=== PATIENT | female | born 1940 | race Caucasian/White ===

== ENCOUNTER 2016-08-02 10:20 | Emergency (ER) | payer MEDICAID, MEDICARE ==
[~2016-08-02] VITALS: Ht 165.1 cm; Wt 79.4 kg
[~2016-08-02 10:20] MED LIST: ALBUTEROL SULF8.5 GM INH; AZITHROMYCIN250 MG PO; CYCLOBENZAPRINE10 MG ORAL; IBUPROFEN600 MG ORAL; NKM
[2016-08-02] MEDS ORDERED: Bacitracin Oint UD TOPIC ONE (10:45)
[2016-08-02] MEDS: Lidocaine 1% MPF 10mg/ml 5ml IM ONE ×2 (10:51→11:20)
[2016-08-02 10:55] VITALS: BP 139/67
--- NOTE | 2016-08-02 12:03 | Emergency Room Report ---
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 Bleeding controlled. Pain 2/10, sharp. No numbness. Tetanus < 10 years. No fevers, DM. 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 [employer] Last Menstrual Period: na Reviewed Nursing Documentation: PMH: Agreed, PSxH: Agreed Nursing Documentation-PMH Past Medical History: No Stated History Review of Systems All Other Systems: negative except mentioned in HPI Physical Exam Vital Signs Date Time Temp Pulse Resp B/P Pulse Ox O2 Delivery O2 Flow Rate FiO2 08/02/16 10:26 97.5 65 18 181/73 98 Room Air Sp02 EP Interpretation: reviewed, normal General Appearance: well appearing, no apparent distress Head: normocephalic, atraumatic Eyes: bilateral eye PERRL, bilateral eye normal inspection ENT: hearing grossly normal, normal voice, moist mucus membranes Neck: full range of motion, supple Respiratory: no respiratory distress, speaking full sentences Cardiovascular #2: 2+ dorsalis pedis (L) Musculoskeletal: digits/nails normal, gait/station normal, normal range of motion Neurologic: alert, motor strength/tone normal, sensory intact, normal gait Psychiatric: mood/affect normal Skin: laceration - L posterior calf = 2.5 cm Procedures Laceration/Wound Repair Laceration/Wound Repair : Consent: Verbal Wound Location: lower extremity Wound's Depth, Shape: superficial Wound Length (cm): 2 - 2.5 Wound Explored: clean Betadine Prep?: Yes Anesthesia: 1% Lidocaine Wound Debrided: none Wound Repaired With: sutures Suture Size/Type: 5:0 Layer Closure?: No Sterile Dressing Applied?: Yes Splint Applied?: No Patient Tolerated: Well Complications: None Medical Decision Making Diagnostic Impression: Primary Impression: Laceration of left leg Qualified Codes: S81.812A - Laceration without foreign body, left lower leg, initial encounter ER Course Patient with laceration. Needs repair. Tet UTD. Laceration repaired. Tolerated well. Patient stable for outpatient observation and treatment. Status: improved Disposition: HOME, SELF-CARE Condition: Improved Referrals: NOT CHOSEN [facility]/,REFERRING (PCP) Jakob Luo M.D. August 02, 2016 12:03
[2016-08-02 12:25] VITALS: BP 134/86
== END 2016-08-02 12:25 | disposition home or self-care (01) ==
LOC: EMR 10:43
DX: S81.812A Laceration without foreign body, left lower leg, initial encounter (principal); W25.XXXA Contact with sharp glass, initial encounter; Y92.000 Kitchen of unspecified non-institutional (private) residence as the place of occurrence of the external cause

== ENCOUNTER 2016-08-19 20:25 | Emergency (ER) | payer MEDICARE ==
[~2016-08-19] VITALS: Ht 167.6 cm; Wt 83.9 kg
[2016-08-19 20:40] VITALS: BP 146/78
[2016-08-19 20:50] VITALS: BP 146/78
--- NOTE | 2016-08-19 21:02 | Emergency Room Report ---
History of Present Illness General Chief Complaint: Wound Recheck/Suture Removal Source: Patient Present Illness [facility] The patient is a 76-year-old female presenting for suture removal. The patient had 4 sutures placed of the left lower leg 2 weeks prior. The patient states that she has been keeping the wound clean and dry. She has also been applying Neosporin. She denies any pain, bleeding, or discharge from the wound. She denies any other symptoms including nausea, vomiting, fever, chills, numbness or tingling Allergies: Coded Allergies: No Known Allergies (Verified Allergy, Unknown, 07/09/07) Patient History Past Medical History: see triage record Pertinent Family History: none Reviewed Nursing Documentation: PMH: Agreed, PSxH: Agreed Nursing Documentation-PMH Past Medical History: No Stated History Review of Systems All Other Systems: negative except mentioned in HPI Physical Exam Vital Signs Date Time Temp Pulse Resp B/P Pulse Ox O2 Delivery O2 Flow Rate FiO2 08/19/16 20:32 97.9 76 18 146/78 97 Room Air Sp02 EP Interpretation: reviewed, normal General Appearance: no apparent distress, alert, GCS 15, non-toxic Head: normocephalic, atraumatic Eyes: bilateral eye PERRL, bilateral eye normal inspection Musculoskeletal: back normal, normal range of motion, no calf tenderness Neurologic: alert, oriented x3, responsive, motor strength/tone normal, sensory intact, speech normal Psychiatric: judgement/insight normal, memory normal, mood/affect normal, no suicidal/homicidal ideation Skin: warm/dry, well hydrated, laceration - well healing. Well approximated Lymphatic: no adenopathy Medical Decision Making PA Attestation Dr. Horton is my supervising physician. Patient management was discussed with my supervising physician Diagnostic Impression: Primary Impression: Visit for wound check Additional Impression: Visit for suture removal ER Course The patient is a 76-year-old female presenting for suture removal. Differential diagnosis considered: Wound infection, nonhealing wound, cellulitis , abscess Physical exam: No apparent distress There 4 nylon sutures of the posterior left lower leg. Wound is well approximated. No bleeding. Nontender. Suture removal: 4 simple interrupted sutures were removed without complication. No bleeding or discharge. Wound is well approximated. No surrounding erythema. The patient will be discharged home and will continue to keep the wound clean and dry. ER precautions are given Last Vital Signs Date Time Temp Pulse Resp B/P Pulse Ox O2 Delivery O2 Flow Rate FiO2 08/19/16 20:50 97.9 18 146/78 97 Room Air 08/19/16 20:32 76 Status: improved Disposition: HOME, SELF-CARE Condition: Improved Patient Instructions: Wound Check, Suture Removal, Care After Additional Instructions: I discussed my findings with the patient. All questions and concerns have been answered. Treatment and medication compliance have been addressed. I advised the patient that they need to follow up with PMD in 3-5 days. Return to ED if symptoms worsen, new symptoms arise, or if needed for any reason. Patient verbalized understanding of discharge instructions. MOI SAINI August 19, 2016 21:02
== END 2016-08-19 20:50 | disposition home or self-care (01) ==
LOC: EMR 20:41
DX: Z48.02 Encounter for removal of sutures (principal)
CPT/HCPCS: 99281

== ENCOUNTER 2018-01-03 14:11 | Emergency (ER) | payer MEDICARE, OTHER ==
[~2018-01-03] VITALS: Ht 167.6 cm; Wt 86.2 kg
[2018-01-03 14:25] VITALS: BP 163/69
[2018-01-03 15:08] VITALS: BP 163/69
--- NOTE | 2018-01-03 15:08 | Emergency Room Report ---
History of Present Illness General Chief Complaint: Skin Rash/Abscess Source: Patient Present Illness HPI 77-year-old female presents to the emergency department complaining of itchy rash on the scalp times one week. Patient denies pain and states she is up-to- date with her vaccinations. Pt. denies fevers, chills or swollen tender lymph nodes. Denies lesions/rashes elsewhere on the body. Denies new medications or body washes or creams. Denies swelling of the lips, tongue , throat or airway. Denies wheezing, or shortness of breath. Denies recent travel, recent illness or ill contacts. denies blisters, oral lesions, or sloughing of the skin. Patient states that she has tried multiple home remedies such as essential oils without relief of her symptoms. Patient states that she is now began to have crusting over a large area. Allergies: Coded Allergies: No Known Allergies (Verified Allergy, Unknown, 07/09/07) Patient History Past Medical History: see triage record Past Surgical History: none Pertinent Family History: none Now: No Immunizations: UTD Reviewed Nursing Documentation: PMH: Agreed; PSxH: Agreed Nursing Documentation-PMH Past Medical History: No Stated History Review of Systems All Other Systems: negative except mentioned in HPI Physical Exam Vital Signs Date Time Temp Pulse Resp B/P (MAP) Pulse Ox O2 Delivery O2 Flow Rate FiO2 01/03/18 14:16 97.7 81 18 163/69 96 Room Air 97.7 Sp02 EP Interpretation: reviewed, normal General Appearance: no apparent distress, alert, GCS 15, non-toxic Head: normocephalic, atraumatic Eyes: bilateral eye normal inspection, bilateral eye PERRL ENT: hearing grossly normal, normal pharynx, normal voice Neck: full range of motion Respiratory: lungs clear, normal breath sounds, no wheezing, speaking full sentences Cardiovascular #1: regular rate, rhythm, no edema Musculoskeletal: back normal, gait/station normal, normal range of motion, non- tender Neurologic: alert, oriented x3, responsive, motor strength/tone normal, sensory intact, normal gait, speech normal, grossly normal Psychiatric: judgement/insight normal Skin: normal color, warm/dry, well hydrated, rash - large plaque with crusting noted and multiple dry lesions radiating outward and downward, no blisters or vessicles noted at this time. Medical Decision Making PA Attestation Dr. Eric is my supervising physician whom pt. management has been discussed with. Diagnostic Impression: Primary Impression: Rash and other nonspecific skin eruption ER Course 77-year-old female presents to the emergency department complaining of itchy rash on the scalp times one week. Patient denies pain and states she is up-to- date with her vaccinations. Pt. denies fevers, chills or swollen tender lymph nodes. Denies lesions/rashes elsewhere on the body. Denies new medications or body washes or creams. Denies swelling of the lips, tongue , throat or airway. Denies wheezing, or shortness of breath. Denies recent travel, recent illness or ill contacts. denies blisters, oral lesions, or sloughing of the skin. Patient states that she has tried multiple home remedies such as essential oils without relief of her symptoms. Patient states that she is now began to have crusting over a large area. Ddx considered but are not limited to lice, cellulitis, scabies, shingles, varicella, dermatitis, urticaria, eczema, tinea, viral exanthem, SJS Vital signs: are WNL, pt. is afebrile H&PE are most consistent with suspected infestation rash with secondary infection. ORDERS: none required at this time, the diagnosis is clinical ED INTERVENTIONS: None required at this time. DISCHARGE: At this time pt. is stable for d/c to home. Will provide printed patient care instructions, and any necessary prescriptions. Care plan and follow up instructions have been discussed with the patient prior to discharge. Last Vital Signs Date Time Temp Pulse Resp B/P (MAP) Pulse Ox O2 Delivery O2 Flow Rate FiO2 01/03/18 14:25 97.7 87 18 163/69 96 Room Air 97.7 Disposition: HOME, SELF-CARE Condition: Stable Scripts Mupirocin* (MUPIROCIN*) 22 Gm Oint...g. 1 APPLIC TOPIC THREE TIMES A DAY, #22 GM Prov: Dhara Brooks 01/03/18 Permethrin* (ELIMITE*) 60 Gm Cream..g. 1 APPLIC TOPIC ONCE, #60 GM 0 Refills Apply cream from head to toe; leave on for 8-14 hours before washing off with water; may reapply in 1 week if live mites appear. Prov: Dhara Brooks 01/03/18 Cephalexin* (KEFLEX*) 500 Mg Capsule 500 MG ORAL EVERY 12 HOURS for 7 Days, #14 CAP 0 Refills Prov: Dhara Brooks 01/03/18 Referrals: NOT CHOSEN IPA/MD,REFERRING (PCP) Patient Instructions: Rash Additional Instructions: Take medications as directed. Follow up with a Primary Care Provider in 3-5 days, If symptoms persist your PCP may refer you to a Social Media Marketing Analyst for definitive diagnosis and treatment --Please review list of primary care clinics, if you do not already have a primary care provider Return sooner to ED if new symptoms occur, or current symptoms become worse. - Please note that this Emergency Department Report was dictated using [employer] admin technology software, occasionally this can lead to erroneous entry secondary to interpretation by the dictation equipment. Dhara Brooks Jan 03, 2018 15:08
[2018-01-03] MEDS ORDERED: CEPHALEXIN500 MG ORAL (15:11)
[2018-01-03] MEDS ORDERED: MUPIROCIN22 GM TOPIC (15:11)
[2018-01-03] MEDS ORDERED: PERMETHRIN60 GM TOPIC (15:11)
== END 2018-01-03 15:16 | disposition home or self-care (01) ==
LOC: EMR 14:38
DX: R21 Rash and other nonspecific skin eruption (principal)
CPT/HCPCS: 99283

== ENCOUNTER 2018-03-15 16:07 | Emergency (ER) | payer MEDICARE, OTHER ==
[~2018-03-15] VITALS: Ht 167.6 cm; Wt 85.7 kg
[~2018-03-15 16:07] MED LIST changes: +CEPHALEXIN500 MG ORAL; +MUPIROCIN22 GM TOPIC; +PERMETHRIN60 GM TOPIC
[2018-03-15 16:18] VITALS: BP 141/61
--- NOTE | 2018-03-15 18:13 | Diagnostic Imaging Report ---
History: TRAUMA Exam: CT C SPINE Without Contrast Technique more: CTDI is 13.65 mGy and DLP is 303 mGy-cm. Technique more: One or more of the following dose reduction techniques were used: automated exposure control, adjustment of the mA and/or kV according to patient size, use of iterative reconstruction technique. Comparison: 07/09/2007 FINDINGS: No fracture or malalignment. No evidence of prevertebral swelling. Asymmetric uncovertebral hypertrophic change again seen on the left at C5- 6 with associated posterior disc osteophyte complex and foraminal stenosis. Interval progression of C6-7 discogenic change with areas of bone on bone contact and loss of disc height with endplate degenerative changes, posterior disc osteophyte complex and further bilateral foraminal narrowing. IMPRESSION: No fracture or malalignment. Spondylosis/discogenic changes as above.
--- NOTE | 2018-03-15 18:29 | Emergency Room Report ---
History of Present Illness General Chief Complaint: Neck Injury Source: Patient Present Illness HPI 77-year-old female with no significant past medical history here complaining of pain in the posterior and neck after the fluid of the car was detached and hit her neck followed by facial contusion to the incision which was off. Patient denies loss of consciousness, dizziness, headache, blurry vision, pain in her face, nausea vomiting. Patient secondary Advil immediately after her injury and is complaining of minimal pain 5 out of 10 right now without radiation denying tingling and numbness. Patient is concerned about radiation and wants to have only x-rays done however agrees to do CT scan of her neck and disregard any CT scan or imaging of her face as she denies any pain in her facial bones. Denies nosebleeds. Chest pain, palpitation, SOB, abdominal painpatient currently on no blood thinners Allergies: Coded Allergies: No Known Allergies (Verified Allergy, Unknown, 07/09/07) Patient History Past Medical History: see triage record Past Surgical History: none Now: No Immunizations: UTD Reviewed Nursing Documentation: PMH: Agreed; PSxH: Agreed Nursing Documentation-PMH Past Medical History: No Stated History Review of Systems All Other Systems: negative except mentioned in HPI Physical Exam Vital Signs Date Time Temp Pulse Resp B/P (MAP) Pulse Ox O2 Delivery O2 Flow Rate FiO2 03/15/18 16:18 98.2 18 141/61 96 Room Air 03/15/18 16:18 64 Sp02 EP Interpretation: reviewed, normal General Appearance: normal inspection, well appearing, no apparent distress, alert, GCS 15 Head: normocephalic, atraumatic Eyes: bilateral eye normal inspection, bilateral eye PERRL ENT: normal ENT inspection, normal pharynx Neck: full range of motion, no meningismus, supple/symm/no masses, tender - bony tenderness over C1-C2 also an mass noted on C7 which patient claims is due to previous neck injury years ago Respiratory: normal inspection, lungs clear, normal breath sounds, no rhonchi, no wheezing Cardiovascular #1: normal inspection, regular rate, rhythm, no edema, no murmur Gastrointestinal: normal inspection, non tender, soft Rectal: deferred Genitourinary: deferred Musculoskeletal: back normal, digits/nails normal, gait/station normal, tender - Tenderness over C1-C2 Neurologic: normal inspection, alert, oriented x3, responsive Psychiatric: normal inspection, judgement/insight normal, memory normal Skin: normal inspection, normal color, no rash, warm/dry Lymphatic: normal inspection, no adenopathy Medical Decision Making PA Attestation All diagnosis and treatment plans were reviewed and discussed with my supervising physician Dr. Boyle Diagnostic Impression: Primary Impression: Injury of neck Additional Impressions: Cervical strain Osteoarthritis ER Course 77-year-old female with no significant past medical history here complaining of pain in the posterior and neck after the fluid of the car was detached and hit her neck followed by facial contusion to the incision which was off. Patient denies loss of consciousness, dizziness, headache, blurry vision, pain in her face, nausea vomiting. Patient secondary Advil immediately after her injury and is complaining of minimal pain 5 out of 10 right now without radiation denying tingling and numbness. Patient is concerned about radiation and wants to have only x-rays done however agrees to do CT scan of her neck and disregard any CT scan or imaging of her face as she denies any pain in her facial bones. Denies nosebleeds. Chest pain, palpitation, SOB, abdominal painpatient currently on no blood thinners Ddx considered but are not limited to facial contusion, facial fracture, cervical strain, cervical fracture, Vital signs: are WNL, pt. is afebrile H&PE are most consistent withfacial contusion, cervical strain, osteoarthritis ORDERS: C-spine CT noncontrast, voltaren gel ED INTERVENTIONS: None required at this time. DISCHARGE: At this time pt. is stable for d/c to home. Will provide printed patient care instructions, and any necessary prescriptions. Care plan and follow up instructions have been discussed with the patient prior to discharge. CT/MRI/US Diagnostic Results CT/MRI/US Diagnostic Results : Imaging Test Ordered: C spine CT no contrast Impression osteophytes noted, and degenerative changes, no cervical spine fracture,disc dislocation Last Vital Signs Date Time Temp Pulse Resp B/P (MAP) Pulse Ox O2 Delivery O2 Flow Rate FiO2 18 16:18 98.2 64 18 141/61 96 Room Air Disposition: HOME, SELF-CARE Condition: Stable Scripts Diclofenac Sodium (VOLTAREN) 100 Gm Gel..gram. 1 GM TP BID for 10 Days, #100 GM Prov: Mary Pond 03/15/18 Referrals: NOT CHOSEN IPA/MD,REFERRING (PCP) Patient Instructions: Cervical Strain and Sprain With Rehab-SportsMed, Osteoarthritis Additional Instructions: follow-up with PCP reg apply heat to the neck, avoid straneous physical activity Mary Pond Mar 15, 2018 18:29
[2018-03-15] MEDS ORDERED: VOLTAREN100 G1 TP (18:30)
[2018-03-15 18:56] VITALS: BP 157/76
== END 2018-03-15 18:56 | disposition home or self-care (01) ==
LOC: EMR 17:45
DX: S16.1XXA Strain of muscle, fascia and tendon at neck level, initial encounter (principal); W22.8XXA Striking against or struck by other objects, initial encounter; Y92.89 Other specified places as the place of occurrence of the external cause; M47.812 Spondylosis without myelopathy or radiculopathy, cervical region
CPT/HCPCS: 72125; 99284